=== PATIENT | male | born 1980 | race American Indian/Alaskan Native ===

== ENCOUNTER 2018-02-16 08:51 | Emergency (ER) | payer SELFPAY ==
[2018-02-16 09:22] VITALS: RESP 16; TEMP 98; O2SAT 100
--- NOTE | 2018-02-16 09:52 | ED PDOC ---
Arrival/HPI <You Adamson - Last Filed: 02/16/18 11:04> - History of Present Illness Narrative History of Present Illness (Text): 02/16/18 09:43 Pt is a 37 yo M with no significant pmhx who presents for non-radiating low back pain. Pt states that he was at work yesterday afternoon where he was lifting 20- 30lb bags onto high shelves. He states that after a few bags he noticed his lower back tighten up, but attempted to keep working. He denies any trauma to the back while at work. He states that after his shift he noticed that his back became very stiff after he was able to relax at home. He states that since then he has taken an advil which did not alleviate the pain, but used a warm compress which was helpful. He rates the pain at 7/10 that does not radiate, located in his lower back and is a tight, cramping type pain that is worsened with movement. He denies any numbness, tingling, weakness, bladder or bowel incontinence, or trauma to the area. He also denies dysuria, hematuria, CP, SOB, cough, nausea, vomiting, abd pain, constipation, diarrhea. Pmhx: None Pshx: None Meds: None All: Tylenol with codeine - Vomit Social: Smokes only marijuana daily, drinks 4x a week, denies using any other illicit drugs Fam Hx: Denies <Lg Novoa - Last Filed: 02/16/18 11:31> - General Chief Complaint: Back Pain Time Seen by Provider: 02/16/18 09:20 Past Medical History - Psychiatric Hx Psychophysiologic Disorder: No Hx Substance Use: Yes (CANNABIS) <Lg Novoa - Last Filed: 02/16/18 11:31> Family/Social History Family/Social History: No Known Family HX Smoking Status: Light Smoker < 10 Cigarettes Daily Hx Alcohol Use: Yes Frequency of alcohol use: Socially Hx Substance Use: Yes (CANNABIS) <Lg Novoa - Last Filed: 02/16/18 11:31> Allergies/Home Meds <You Adamson - Last Filed: 02/16/18 11:04> <Lg Novoa - Last Filed: 02/16/18 11:31> Allergies/Adverse Reactions: Allergies codeine Allergy (Verified 02/16/18 09:19) SWELLING Review of Systems - Physician Review All systems were reviewed & negative as marked: Yes - Review of Systems Gastrointestinal: Other (No fecal incontinence ) Genitourinary Male: Other (No bladder incontinence ) Musculoskeletal: Back Pain Neurological: Other (No numbness, no tingling, no weakness ) <Lg Novoa - Last Filed: 02/16/18 11:31> Physical Exam Vital Signs Temp Pulse Resp BP Pulse Ox 02/16/18 09:19 98.0 F 66 16 130/80 100 <Tolerico,You - Last Filed: 02/16/18 11:04> Vital Signs Temp Pulse Resp BP Pulse Ox 02/16/18 09:19 98.0 F 66 16 130/80 100 Temperature: Afebrile Blood Pressure: Normal Pulse: Regular Respiratory Rate: Normal Appearance: Positive for: Well-Appearing, Non-Toxic Pain Distress: Mild Mental Status: Positive for: Alert and Oriented X 3 - Systems Exam Head: Present: Atraumatic, Normocephalic Pupils: Present: PERRL Extroacular Muscles: Present: EOMI Mouth: Present: Moist Mucous Membranes Respiratory/Chest: Present: Clear to Auscultation, Good Air Exchange. No: Respiratory Distress, Accessory Muscle Use, Wheezes, Decreased Breath Sounds Cardiovascular: Present: Regular Rate and Rhythm, Normal S1, S2. No: Murmurs, Rub, Gallop Abdomen: Present: Normal Bowel Sounds. No: Tenderness, Distention, Rebound, Guarding Back: Present: Normal Inspection, Paraspinal Tenderness (b/l worse on L than R). No: CVA Tenderness, Midline Tenderness Lower Extremity: Present: Normal Inspection. No: Edema, CALF TENDERNESS, Fredy's Sign Neurological: Present: GCS=15, CN II-XII Intact, Speech Normal, Motor Func Grossly Intact, Normal Sensory Function Skin: Present: Warm, Dry, Normal Color. No: Rashes Psychiatric: Present: Alert, Oriented x 3, Normal Insight, Normal Concentration <Lg Novoa - Last Filed: 02/16/18 11:31> Medical Decision Making ED Course and Treatment: 02/16/18 10:15 Seen and examined with the resident. Our history and physical exam reveals a young man who was doing some heavy lifting and twisting at work yesterday. He developed low back pain. No radiation. No abdominal pain nausea vomiting or diarrhea. No genitourinary symptoms. No numbness tingling paresthesias or weakness. No history of low back pain. 02/16/18 11:04 Symptoms markedly improved. - Medication Orders Current Medication Orders: Discontinued Medications Cyclobenzaprine HCl (Flexeril) 10 mg PO STAT STA Stop: 02/16/18 09:37 Last Admin: 02/16/18 10:06 Dose: 10 mg Ketorolac Tromethamine (Toradol) 30 mg IM STAT STA Stop: 02/16/18 09:37 Last Admin: 02/16/18 10:06 Dose: 30 mg MAR Pain Assessment Document 02/16/18 10:06 SF (Rec: 02/16/18 10:06 SF [facility] [id number]) Pain Reassessment Is this a pain reassessment? Yes Sleep Is patient sleeping during reassessment? No Presence of Pain Presence of Pain Yes Pain Scale Used Protocol: PSCALES Pain Scale Used Numeric Location Upper or Lower Lower Description Description Constant IM Administration Charges Document 02/16/18 10:06 SF (Rec: 02/16/18 10:06 SF [facility] [id number]) Injection Site MAR Injection Site Left Deltoid Charges for Administration # of IM Administrations 1 <You Adamson - Last Filed: 02/16/18 11:04> ED Course and Treatment: 02/16/18 09:58 Pt is a 37 yo M with no significant pmhx who presents for non-radiating lower back pain sustained after lifting heavy objects at work, with no trauma or saddle anesthia. - Flexeril 10mg PO - Toradol 30mg IM - Medication Orders Current Medication Orders: Discontinued Medications Cyclobenzaprine HCl (Flexeril) 10 mg PO STAT STA Stop: 02/16/18 09:37 Ketorolac Tromethamine (Toradol) 30 mg IM STAT STA Stop: 02/16/18 09:37 <Lg Novoa - Last Filed: 02/16/18 11:31> Disposition/Present on Arrival - Present on Arrival Any Indicators Present on Arrival: No History of DVT/PE: No History of Uncontrolled Diabetes: No Urinary Catheter: No History of Decub. Ulcer: No - Disposition Have Diagnosis and Disposition been Completed?: Yes Disposition Time: 11:05 Patient Plan: Discharge <You Adamson - Last Filed: 02/16/18 11:04> - Present on Arrival History of DVT/PE: No History of Uncontrolled Diabetes: No Urinary Catheter: No History of Decub. Ulcer: No History Surgical Site Infection Following: None <Lg Novoa - Last Filed: 02/16/18 11:31> - Disposition Diagnosis: Low back strain Discharge Instructions (ExitCare): Lumbar Muscle Strain (DC) Prescriptions: Cyclobenzaprine [Flexeril] 5 mg PO Q8 #15 tab Naproxen [Naprosyn] 500 mg PO BID #14 tab Referrals: PCP,NO [Non-Staff] - Follow up with primary Forms: [employer] ([place]adorean)
[2018-02-16 11:16] VITALS: BP 129/81; PULSE 64
== END 2018-02-16 11:16 | disposition home or self-care (01) ==
LOC: ED 08:51
DX: S39.012A Strain of muscle, fascia and tendon of lower back, initial encounter (principal); X50.0XXA Overexertion from strenuous movement or load, initial encounter; Y92.89 Other specified places as the place of occurrence of the external cause; Y99.0 Civilian activity done for income or pay
CPT/HCPCS: 96372; 99284; J1885